=== PATIENT | male | born 1975 | race Caucasian/White ===

== ENCOUNTER → 2019-07-25 14:06 | Outpatient (BNVA) | payer SELFPAY | PROVIDERS: PCP Nurse Practitioner Family; Visit Provider Nurse Practitioner | DX: R05 Cough (principal); J40 Bronchitis, not specified as acute or chronic | CPT/HCPCS: 71046; 85025 ==

== ENCOUNTER → 2019-08-02 14:25 | Outpatient (BNVA) | payer SELFPAY | PROVIDERS: PCP Nurse Practitioner Family; Visit Provider Nurse Practitioner | DX: J45.21 Mild intermittent asthma with (acute) exacerbation (principal) | CPT/HCPCS: 85025 ==

== ENCOUNTER → 2019-09-13 16:14 | Outpatient (BNVA) | payer SELFPAY | PROVIDERS: PCP Nurse Practitioner Family; Visit Provider Nurse Practitioner Family | DX: M79.89 Other specified soft tissue disorders (principal) | CPT/HCPCS: 80053; 85025 ==

== ENCOUNTER 2023-10-06 22:15 | Emergency (ER) | payer SELFPAY ==
[2023-10-06 22:31] VITALS: BP 119/85; PULSE 83; RESP 18; TEMP 36.6; O2SAT 97; BMI 27.3
--- NOTE | 2023-10-06 22:58 | ECG_ITS ---
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 Measurements Intervals [place] Rate: 70 P: 14 OK: 137 QRS: 45 QRSD: 94 T: 44 QT: 369 QTc: 398 Interpretive Statements SINUS RHYTHM POSSIBLE RIGHT VENTRICULAR CONDUCTION DELAY [RSR (QR) IN V1/V2] No previous ECG available for comparison Electronically Signed On 10-07-2023 20:50:29 CDT by Rachel Rick M.D. [email or web address]
--- NOTE | 2023-10-06 22:58 | CTR_ITS ---
PROCEDURE INFORMATION: Exam: CT Head Without Contrast Exam date and time: 10/06/2023 11:04 PM Age: 48 years old Clinical indication: Other: Shaking; Additional info: Shaking x1 month TECHNIQUE: Imaging protocol: Computed tomography of the head without contrast. Radiation optimization: All CT scans at this facility use at least one of these dose optimization techniques: automated exposure control; mA and/or kV adjustment per patient size (includes targeted exams where dose is matched to clinical indication); or iterative reconstruction. COMPARISON: CT cervical spin wo con* [id number] 03/01/2018 3:23 PM RADIATION DOSE METRICS: Total DLP (mGy-cm): 1043.8 FINDINGS: Brain: No acute intra- or extra axial fluid collections are identified. The basal cisterns are patent. No mass effect or midline shift is seen. The dennison-white matter differentiation is normal. Suggestion of borderline prominent optic nerve sheaths. Low-lying cerebellar tonsils reaching down to the level of the foramen magnum. Suggestion of a partially empty sella. Congenital nonfusion of the posterior arch of C1. Cerebral ventricles: The ventricles are of normal size, shape, and morphology. Paranasal sinuses: The paranasal sinuses appear grossly clear. Mastoid air cells: Mild opacification in the right mastoid air cells. The mastoid air cells appear grossly clear. Orbital cavities: The orbits appear normal. Bones: No acute calvarial fracture is identified. Soft tissues: No soft tissue abnormalities identified. CT/CT head wo con* [id number] IMPRESSION: 1. No evidence of acute intracranial hemorrhage, mass effect, or midline shift. 2. Minimal opacification in the right mastoid air cells. 3. Fundus examination is recommended to exclude the possibility of papilledema and the remote possibility of idiopathic intracranial hypertension (IIH).
--- NOTE | 2023-10-06 23:09 | ED_ITS ---
HPI - General Adult 2 General: Chief complaint: General Medical Stated complaint: feeling like shaking, Time Seen by Provider: 10/06/23 22:45 Source: patient Mode of arrival: ambulatory Limitations: no limitations History of Present Illness: Patient is a 38-year-old male with no pertinent past medical history who presents to the emergency department complaining of 1 month of intermittent spells of diffuse shaking. He notes that for the past month before bed, he will have 1 spell of shaking, though he states I feel like I am shaking but I look at my hands and they are not moving. He has never had this issue before, and states he became concerned when he had 2 episodes of this today during the day. He denies any new medications. Denies any illicit drug use. 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 He does see primary care in [place], has not had this worked up prior. He is denying any shortness of breath, chest pain, headaches, blurred vision, numbness, weakness, syncope, seizures, or other symptoms at this time. He states that no one has been around to witness 1 of these episodes and thus he has not been informed of how he looks when this is occurring. MD complaint: Diffuse body shaking intermittently Pain Consistency: intermittent Relieving factors: none Exacerbating factors: none Associated symptoms: Reports no associated symptoms; Deny chest pain, dyspnea, headache(s), nausea, rash, palpitations or vomiting Treatments prior to arrival: none Review of Systems 2 General: Reports: 10 or more systems reviewed and unremarkable except in HPI and below Const: Denies: fever(s), chills or fatigue Eyes: Denies: change in vision ENMT: Denies: throat pain, ear or mastoid pain or nasal discharge Card: Denies: chest pain, palpitations, swelling of feet/ankles or lightheadedness Resp: Denies: dyspnea, productive cough or wheezing GI: Denies: abdominal pain, nausea, vomiting, diarrhea or constipation : Denies: flank pain, difficulty urinating, dysuria or urinary frequency Musc: Denies: neck pain, back pain or joint pain Skin/Breast: Denies: rash Neuro: Reports: other (Diffuse body shaking); Denies: headache(s), numbness in extremities, weakness in extremities, sensory changes, lack of coordination, dizziness, behavioral changes, Slurred speech present or seizure-like activity Psych: Denies: anxiety PFSH ED 2 PFSH: Medical History (Updated 10/07/23 @ 00:23 by SAHARA Kidd) Caries involving multiple surfaces of tooth Hx of dental abscess Personal history of nicotine dependence Surgical History History of surgical procedure on mouth Left lower jaw with bone abscess Family History Other Cancer Diabetes Hypertension Lung disease Denies family history of Bleeding disorder Social History Smoking and tobacco/nicotine status: current every day tobacco/nicotine user Second hand smoke exposure: Yes Alcohol intake: unknown Substance/Drug Use: unknown Caregiver/support person: No Lives independently: Yes Current occupational exposures/hazards: No Do you think of yourself as: Straight/Heterosexual Current gender identity: Male Physical Exam 2 Const: COMMON NORMALS: no acute distress, patient oriented x3 and no limitations GENERAL APPEARANCE: cooperative, comfortable and well developed ORIENTATION/CONSCIOUSNESS: Yes awake, Yes oriented to person, Yes oriented to place and Yes oriented to time HENMT: COMMON NORMALS: normocephalic, atraumatic and hearing grossly normal bilaterally HEAD & SCALP: normocephalic and atraumatic Eye: COMMON NORMALS: Equal, round and reactive pupils present, EOMs intact bilaterally and conjunctivae normal CONJUNCTIVA: Yes conjunctivae normal P UPIL: Yes Equal, round and reactive pupils present Neck/C-Spine: COMMON NORMALS: full ROM, supple and no JVD Resp: COMMON NORMALS: normal respiratory effort, No retractions, No use of accessory muscles and clear to auscultation bilaterally AUSCULTATION: clear to auscultation bilaterally Cardio: COMMON NORMALS: no JVD, regular rate, regular rhythm, No clicks present (Cardio), No murmurs present (Cardio) and No rub (Cardio) RATE: r egular rate RHYTHM: regular rhythm GI: COMMON NORMALS: Normal to inspection, nondistended, normoactive bowel sounds present, Soft to palpation and non-tender AUSCULTATION: Yes normoactive bowel sounds PALPATION: Yes Soft to palpation RECTAL EXAM: Yes deferred Back/Pelvis: COMMON NORMALS: thoracic and lumbar spine normal to inspection, no thoracic nor lumbar tenderness and thoraco-lumbar ROM normal Extremity: COMMON NORMALS: normal to inspection, full ROM and capillary refill normal Neuro: COMMON NORMALS: patient oriented x3, CN's II-XII intact bilaterally, moves all extremities, no focal motor deficits and no sensory deficits noted SENSORIUM/ORIENTATION: Yes oriented to person, Yes oriented to place and Yes oriented to time Psych: COMMON NORMALS: mental status grossly normal and Normal thought process present THOUGHT PROCESS: Normal thought process present Skin: COMMON NORMALS: no rashes or lesions noted GENERAL SKIN EXAM: no rashes or lesions noted Course 2 Vital Signs: Vital signs: Vital Signs Temperature 97.8 F 10/06/23 22:31 Pulse Rate 73 10/07/23 00:16 Respiratory Rate 18 10/06/23 22:31 Blood Pressure 123/85 10/07/23 00:16 Pulse Oximetry 95 10/07/23 00:16 Oxygen Delivery Me thod Room Air 10/06/23 23:42 [facility] - General Adult Medical Decision Making Patient presented with a month of intermittent feelings of shaking, worsening today as it occurred during the day where normally happened before bed. No pertinent past medical history to report. Vitals were normal. Physical examination was normal including no focal neurological deficit. Lab work was all nondiagnostic. Head CT did not demonstrate any acute abnormalities. EKG showed normal sinus rhythm with no acute ST segment changes. After further history taking and investigation with patient, he states that he has been sleeping no more than 2 hours a night, which has been exacerbated by being anxious over what could be going wrong. 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 Also notes his last year, and his anxiety has only creased from then. I do not think that patient's current reported symptoms are due to any underlying neurological abnormality or organic etiology, and that likely due to built-up fatigue and potentiation from anxiety. Because of this, I instructed him to follow-up with primary care for further evaluation and to discuss any pharmaceutical therapy. I informed him to increase his fluid intake and discussed importance of sufficient hours of sleep. Reasons to return were discussed. Care of patient discussed with supervising ED physician, Dr. Jakcson, who agrees with disposition at this time. Lab Data 10/06/23 23:35 10/06/23 23:[address] 10/06/23 22:58 IMPRESSION: 1. No evidence of acute intracranial hemorrhage, mass effect, or midline shift. 2. Minimal opacification in the right mastoid air cells. 3. Fundus examination is recommended to exclude the possibility of papilledema and the remote possibility of idiopathic intracranial hypertension (IIH). Laboratory Results WBC 9.25 10^3/uL (3.29-11.43) 10/06/23 23:35 RBC 5.86 10^6/uL (3.85-5.65) H 10/06/23 23:35 Hgb 17.70 g/dL (11.27-16.99) H 10/06/23 23:35 Hct 56.1 % (37-53) H 10/06/23 23:35 MCV 95.7 fl (82-101) 10/06/23 23:35 MCH 30.2 pg (27-33) 10/06/23 23:35 MCHC 31.6 g/dL (30-55) 10/06/23 23:35 RDW 14.6 % (12.1-15.1) 10/06/23 23:35 Plt Count 175 10^3/cmm (157-399) 10/06/23 23:35 MPV 10.6 fL (7.4-10.4) H 10/06/23 23:35 Neut % (Auto) 52.6 % 10/06/23 23:35 Lymph % (Auto) 37.6 % 10/06/23 23:35 [place] % (Auto) 5.8 % 10/06/23 23:35 Eos % (Auto) 2.8 % 10/06/23 23:35 Baso % (Auto) 1.0 % 10/06/23 23:35 Neut # (Auto) 4.86 10^3/uL (1.8-7.7) 10/06/23 23:35 Lymph # (Auto) 3.5 10^3/uL (0.8-4.8) 10/06/23 23:35 [place] # (Auto) 0.5 10^3/uL (0.2-0.9) 10/06/23 23:35 Eos # (Auto) 0.3 10^3/uL (0.0-0.8) 10/06/23 23:35 Baso # (Auto) 0.1 10^3/uL (0.0-0.1) 10/06/23 23:35 Nucleated RBC % (auto) 0 % 10/06/23 23:35 Nucleated RBCs # 0.0 /100WBC 10/06/23 23:35 Sodium 141 mmol/L (136-145) 10/06/23 23:35 Potassium 4.0 mmol/L (3.5-5.1) 10/06/23 23:35 Chloride 105 mmol/L (98-107) 10/06/23 23:35 Carbon Dioxide 27 mmol/L (22-29) 10/06/23 23:35 Anion Gap 13.0 (5-19) 10/06/23 23:35 BUN 10 mg/dL (6-20) 10/06/23 23:35 Creatinine 0.9 mg/dL (0.7-1.2) 10/06/23 23:35 GFR Calculation 89.7 mL/min (90-130) L 10/06/23 23:35 Glucose 86 mg/dL (65-115) 10/06/23 23:35 Calculated Osmolality 290 mOsm/kg (285-295) 10/06/23 23:35 Calcium 9.2 mg/dL (8.5-10.5) 10/06/23 23:35 Magnesium 2.1 mg/dL (1.7-2.3) 10/06/23 23:35 Total Bilirubin 0.3 mg/dL (0.15-1.2) 10/06/23 23:35 AST 18 U/L (0-40) 10/06/23 23:35 ALT 21 U/L (0-41) 10/06/23 23:35 Alkaline Phosphatase 82 U/L (40-130) 10/06/23 23:35 Creatine Kinase 78 U/L (39-308) 10/06/23 23:35 Total Protein 7.1 g/dL (6.6-8.7) 10/06/23 23:35 Albumin 4.4 g/dL (3.5-5.2) 10/06/23 23:35 Globulin 2.7 g/dL (1.3-4.6) 10/06/23 23:35 Urine Color Yellow (Yellow) 10/06/23 23:08 Urine Appearance Clear (CLEAR) 10/06/23 23:08 Urine pH 5 (5-7) 10/06/23 23:08 Ur Specific [place] 1.010 (1.005-1.030) 10/06/23 23:08 Urine Protein Neg (Negative) 10/06/23 23:08 Urine Glucose (UA) Norm (Normal) 10/06/23 23:08 Urine Ketones Negative (Negative) 10/06/23 23:08 Urine Blood Neg (Negative) 10/06/23 23:08 Urine Nitrate Negative 10/06/23 23:08 Urine Bilirubin Neg (Negative) 10/06/23 23:08 Urine Urobilinogen Norm mg/dL (Negative) 10/06/23 23:08 Ur Leukocyte Esterase Negative (Negative) 10/06/23 23:08 Urine Opiates Screen Negative ng/mL (Negative) 10/06/23 23:08 Ur Barbiturates Screen Negative ng/mL (Negative) 10/06/23 23:08 Ur Phencyclidine Scrn Negative ng/mL (Negative) 10/06/23 23:08 Ur Amphetamines Screen Negative ng/mL (Negative) 10/06/23 23:08 U Benzodiazepines Scrn Negative ng/mL (Negative) 10/06/23 23:08 Urine Cocaine Screen Negative ng/mL (Negative) 10/06/23 23:08 U Marijuana (THC) Screen Negative ng/mL (Negative) 10/06/23 23:08 All radiology interpretation(s) finalized by discharge Discharge Plan Discharge Patient Disposition: Home Clinical Impression: Chronic fatigue Condition: Stable Prescriptions: No Action albuterol sulfate [ProAir HFA] 90 mcg/actuation HFA aerosol inhaler 2 puff inhalation QID PRN (Reason: shortness of breath or wheezing) Qty: 6.7 5RF cefdinir 300 mg capsule 300 mg PO BID Qty: 20 0RF Discharge Orders: Discharge ED (Routine); Ordered 10/07/23 Ordered By: Maximilian Barksdale Referrals: Starla Sorensen FNP [Primary Care Provider] - Discharge Diet: As Directed Discharge Activity: Increase activity as tolerated Patient Instructions: Fatigue (ED) Activity Restrictions/Additional Instructions: Please allow yourself 7-8 hours of sleep at night. Plenty of fluids. Please follow-up with primary care as discussed. Please monitor for any new or worsening of symptoms and return for reevaluation. Coding Level of Care Code ED [employer] for [employer]
[2023-10-06 23:12] LABS: Add Urine Microscopic? NO; Charge for UA Resulting for Rev
[2023-10-06 23:18] LABS: Bilirubin Urine Neg (Negative); Blood Urine Neg (Negative); Glucose Urine UA Norm (Normal); Ketones Urine Negative (Negative); Leukocyte Esterase Urine Negative (Negative); Nitrate Urine Negative; Protein Urine Neg (Negative); Urine Appearance Clear (CLEAR); Urine Color Yellow (Yellow); Urobilinogen Urine Norm (Negative); pH Urine 5 (5-7)
[2023-10-06 23:22] LABS: Amphetamines Screen Urine Negative (Negative); Barbiturates Screen Urine Negative (Negative); Benzodiazepines Screen Urine Negative (Negative); Cocaine Screen Urine Negative (Negative); Opiate Screen Urine Negative (Negative); PCP Screen Urine Negative (Negative); THC Screen Urine Negative (Negative)
[2023-10-06 23:42] VITALS: BP 122/82; PULSE 79; O2SAT 94
[2023-10-06 23:51] LABS: Basophils # 0.1 10^3/uL (0.0-0.1); Eosinophils # 0.3 10^3/uL (0.0-0.8); Eosinophils % 2.8 %; Hematocrit 56.1 % (37-53); Lymphocytes # 3.5 10^3/uL (0.8-4.8); Lymphocytes % 37.6 %; Mean Corpuscular HGB Conc 31.6 g/dL (30-55); Mean Corpuscular Hemoglobin 30.2 pg (27-33); Mean Corpuscular Volume 95.7 fl (82-101); Mean Platelet Volume 10.6 fL (7.4-10.4); Monocytes # 0.5 10^3/uL (0.2-0.9); Monocytes % 5.8 %; Neutrophils # 4.86 10^3/uL (1.8-7.7); Neutrophils % 52.6 %; Nucleated Red Blood Cells % 0 %; Platelet Count 175 10^3/cmm (157-399); Red Blood Count 5.86 10^6/uL (3.85-5.65); Red Cell Distribution Width 14.6 % (12.1-15.1); White Blood Count 9.25 10^3/uL (3.29-11.43)
[2023-10-07 00:05] LABS: Alanine Aminotransferase 21 U/L (0-41); Albumin Level 4.4 g/dL (3.5-5.2); Alkaline Phosphatase 82 U/L (40-130); Aspartate Amino Transferase 18 U/L (0-40); Blood Urea Nitrogen 10 mg/dL (6-20); Calcium 9.2 mg/dL (8.5-10.5); Carbon Dioxide 27 mmol/L (22-29); Chloride 105 mmol/L (98-107); Creatine Phosphokinase 78 U/L (39-308); Creatinine Clr Calc Pharmacy 106.7087; Globulin 2.7 g/dL (1.3-4.6); Glomerular Filtration Rate 89.7 mL/min (90-130); Glucose 86 mg/dL (65-115); Magnesium 2.1 mg/dL (1.7-2.3); Osmolality Calculated 290 mOsm/kg (285-295); Sodium 141 mmol/L (136-145); Total Bilirubin 0.3 mg/dL (0.15-1.2); Total Protein 7.1 g/dL (6.6-8.7)
[2023-10-07 00:16] VITALS: BP 123/85; PULSE 73; O2SAT 95
[2023-10-07 00:42] VITALS: RESP 16
== END 2023-10-07 00:39 | disposition home or self-care (01) ==
PROVIDERS: Emergency Provider Physician Assistant; PCP Nurse Practitioner Family
DX: R53.82 Chronic fatigue, unspecified (principal); Z72.0 Tobacco use
CPT/HCPCS: 36415; 70450; 80053; 80306; 81003; 82550; 83735; 85025; 93005; 99284

== ENCOUNTER → 2024-02-07 14:19 | Outpatient (BNVA) | payer OTHER, SELFPAY | PROVIDERS: PCP Nurse Practitioner Family; Referring Provider Nurse Practitioner Family; Visit Provider Psychiatry & Neurology Neurology | DX: H05.119 Granuloma of unspecified orbit (principal); G93.2 Benign intracranial hypertension; R56.9 Unspecified convulsions; E55.9 Vitamin D deficiency, unspecified; Z83.49 Family history of other endocrine, nutritional and metabolic diseases | CPT/HCPCS: 36415; 82607; 82652; 82746; 83090; 83735; 84439; 84443 ==

== ENCOUNTER 2024-02-22 15:13 | Outpatient (CLI) | payer OTHER, SELFPAY ==
--- NOTE | 2024-02-22 15:15 | MR_ITS ---
WS: [id number] MRI HEAD WITH CONTRAST TECHNIQUE: Sagittal T1, T2 axial, T2 axial FLAIR, axial susceptibility weighted imaging, axial diffus ion weighted images, and coronal T2 images were obtained. Pre and post-T1 axial and post T1 coronal i mages. ADC and FSPGR images. 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 Mild patchy supratentorial white matte r changes nonspecific in a patient this age but can be seen with hypertension, diabetes, and migraine headaches. Demyelinating disease is less likely. Normal posterior fossa. Normal vascular flow voids at the skull base. No extra-axial fluid collections. No evidence of mass or mass effect. Retention cy sts in the posterior nasopharynx. Partial opacification of the RIGHT greater than LEFT mastoid air ce lls.Mucosal thickening in the paranasal sinuses. No hemosiderin on susceptibly weighted images. Prominent optic nerve sheaths bilaterally. No optic nerve edema. Partially empty sella. Slight flatte supa of the posterior sclera. Findings are nonspecific but can be seen with idiopathic intracranial h ypertension in the appropriate clinical setting. Normal rectus muscles. Proximal 7th and 8th cranial nerves are normal in appearance. Normal dural venous sinuses. MR/MR head wo/w con [id number] IMPRESSION: 1. No evidence of restricted diffusion to suggest acute ischemia. 2. Mild patchy supratentorial white matter changes nonspecific in a patient of this age but can be seen with hypertension, diabetes, migraine headaches, and less likely demyelinating disease. Corpus callosum is normal in appearance. 3. No abnormal gadolinium enhancement. 4. No hemosiderin on susceptibly weighted images. 5. Mild dilatation of the optic nerve sheaths with mild flattening of the post erior sclera. Partially empty sella. Findings are nonspecific but can be seen w ith idiopathic intracranial hypertension in the appropriate clinical setting.
[2024-02-22] MEDS: gadobenate dimeglumine 20 mL vial IV (15:58)
== END 2024-02-22 15:14 | disposition home or self-care (01) ==
LOC: RAD 15:14
PROVIDERS: PCP Nurse Practitioner Family; Visit Provider Psychiatry & Neurology Neurology
DX: H05.119 Granuloma of unspecified orbit (principal)
CPT/HCPCS: 70553